=== PATIENT | female | born 1960 | race Hispanic/Latino ===

== ENCOUNTER 2018-01-22 16:41 | Emergency (ER) | payer OTHER ==
[~2018-01-22] VITALS: Ht 162.6 cm; Wt 90.7 kg
--- OUTSIDE RECORDS SUMMARY | 2018-01-22 16:46 | XMS REPORT ---
Author Author [facility] Address Unknown Phone Unavailable Care Team Providers Care Pitch Flaker Name Role Phone Unavailable Unavailable Payers Payer Name Policy Type Policy Number Effective Date Expiration Date Problems This patient has no known problems. Allergies, Adverse Reactions, Alerts Allergy Name Allergy Type Status Severity Reaction(s) Onset Date Inactive Date Treating Clinician Comments No Known Allergies DA Active U 2010-12-29 00:00:00 Medications This patient has no known medications.
[2018-01-22] MEDS ORDERED: KETOROLAC TROMETHAMINE 30 MG/ML VIAL IV STA (18:15)
--- NOTE | 2018-01-22 19:33 | Diagnostic Imaging Report ---
EXAM: Bilateral lower extremity venous Doppler INDICATION: Right leg pain COMPARISON: None TECHNIQUE: [place] scale, color Doppler and spectral waveform analysis of the bilateral lower extremities deep venous system was performed. FINDINGS: RIGHT LOWER EXTREMITY: Normal waveform response to augmentation. Common Femoral: Fully compressible with normal spontaneous waveforms. Femoral: Fully compressible with normal spontaneous waveforms. Proximal Greater Saphenous: Fully compressible. Proximal Profunda (Deep Femoral): Normal spontaneous waveforms. Popliteal: Fully compressible with normal spontaneous waveforms. Anterior tibial: Fully compressible with normal spontaneous waveforms. Posterior tibial: Fully compressible with normal spontaneous waveforms. LEFT LOWER EXTREMITY: Normal waveform response to augmentation. Common Femoral: Fully compressible with normal spontaneous waveforms. Femoral: Fully compressible with normal spontaneous waveforms. Proximal Greater Saphenous: Fully compressible. Proximal Profunda (Deep Femoral): Normal spontaneous waveforms. Popliteal: Fully compressible with normal spontaneous waveforms. Anterior tibial: Fully compressible with normal spontaneous waveforms. Posterior tibial: Fully compressible with normal spontaneous waveforms. IMPRESSION: No evidence of deep venous thrombosis of the bilateral lower examination. Signed by: Dr. Ava Sifuentes M.D. on 01/22/2018 7:29 PM
== END 2018-01-22 20:46 | disposition home or self-care (01) ==
LOC: FSED 16:44
DX: M79.661 Pain in right lower leg (principal); E78.5 Hyperlipidemia, unspecified; K21.9 Gastro-esophageal reflux disease without esophagitis
CPT/HCPCS: 93970 ×2; 99283; J1885